=== PATIENT | male | born 1980 | race Caucasian/White ===

== ENCOUNTER 2024-04-16 07:15 | Emergency (ER) | payer OTHER ==
[~2024-04-16] VITALS: Ht 167.6 cm; Wt 59.5 kg
[2024-04-16 07:23] VITALS: BP 128/84; TEMP 97.8
[2024-04-16] MEDS ORDERED: Ofloxacin 0.3% Ophth/Otic Soln 5 ML BOTTLE OP ONE (08:00)
[2024-04-16 08:13] VITALS: PULSE 72
== END 2024-04-16 08:13 | disposition home or self-care (01) ==
LOC: COL.ER 07:15
DX: S05.02XA Injury of conjunctiva and corneal abrasion without foreign body, left eye, initial encounter (principal); H10.9 Unspecified conjunctivitis; F17.200 Nicotine dependence, unspecified, uncomplicated; X58.XXXA Exposure to other specified factors, initial encounter